=== PATIENT | female | born 1965 | race Caucasian/White ===

== ENCOUNTER 2017-01-12 11:43 | Emergency (ER) | payer OTHER ==
[2017-01-12 12:20] VITALS: BP 111/67
[2017-01-12] MEDS ORDERED: Rabies Vaccine, PCEC INJ* 1 ml IM ONE (12:38)
[2017-01-12] MEDS ORDERED: Rabies Immune Globulin 2 ML* 150 UNITS/ML VIAL IM ONE (12:39)
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
== END 2017-01-12 13:27 | disposition home or self-care (01) ==
LOC: UCEAST 11:43
DX: Z20.3 Contact with and (suspected) exposure to rabies (principal); Z29.14 Encounter for prophylactic rabies immune globulin
CPT/HCPCS: 90375; 90471; 90675; 96372; 99201; G0463